=== PATIENT | female | born 1945 | race Caucasian/White ===

== ENCOUNTER 2022-09-16 14:35 | Emergency (ER) | payer MEDICARE | END 2022-09-16 16:10 | disposition home or self-care (01) | LOC: NAV ERS 14:35 | DX: M25.562 Pain in left knee (principal); E11.9 Type 2 diabetes mellitus without complications; I10 Essential (primary) hypertension; E03.9 Hypothyroidism, unspecified; Z79.84 Long term (current) use of oral hypoglycemic drugs ==

== ENCOUNTER 2024-04-22 15:57 | Emergency (ER) | payer MEDICARE ==
[2024-04-22] MEDS ORDERED: predniSONE 20 MG TAB ONE (16:33)
== END 2024-04-22 16:45 | disposition home or self-care (01) ==
LOC: NAV ERS 15:57
DX: R21 Rash and other nonspecific skin eruption (principal); E11.9 Type 2 diabetes mellitus without complications; I10 Essential (primary) hypertension; E03.9 Hypothyroidism, unspecified; Z79.899 Other long term (current) drug therapy
CPT/HCPCS: 99282; J7512